=== PATIENT | male | born 1950 | race Caucasian/White ===

== ENCOUNTER 2021-11-26 10:45 | Inpatient (IN) | payer MEDICAID ==
[~2021-11-26] VITALS: Ht 152.4 cm; Wt 77.0 kg
[2021-11-26] MEDS ORDERED: EMPA25TA PO (10:59)
[2021-11-26] MEDS ORDERED: METF-1211 PO (10:59)
[2021-11-26] MEDS ORDERED: LINA5TAB PO (10:59)
[2021-11-26] MEDS ORDERED: LOSA1TAB40 PO (11:03)
[2021-11-26] MEDS ORDERED: ATOR40TA71 PO (11:03)
[2021-11-26] MEDS ORDERED: INSU100V12 SQ (11:03)
[2021-11-26] MEDS ORDERED: INSNOV SQ (11:03)
[2021-11-26 12:38] LABS: BASOPHILS % (AUTO) 0.7 % (0.0-2.0); EOSINOPHILS % (AUTO) 1.7 % (1.0-6.0); HEMATOCRIT 44.4 % (41-53); LYMPHOCYTES # (AUTO) 1.5 K/uL (1.0-4.8); LYMPHOCYTES % (AUTO) 21.6 % (22.0-44.0); MEAN CORPUSCULAR HEMOGLOBIN 30.1 pg (26.0-34.0); MEAN CORPUSCULAR HGB CONC 33.7 G/dL (31.0-37.0); MEAN CORPUSCULAR VOLUME 89 fL (80-100); MONOCYTES # (AUTO) 0.6 K/uL (0.1-1.0); NEUTROPHILS # (AUTO) 4.6 K/uL (1.8-7.7); PLATELET COUNT (AUTO) 269 K/uL (150-450); RED BLOOD CELL COUNT(AUTO) 4.98 MIL/uL (4.50-5.90); RED CELL DISTRIBUTION WIDTH 14.2 % (11.5-14.5)
[2021-11-26 12:44] LABS: COVID AG,FIA SOURCE NASAL SWAB
[2021-11-26 12:49] LABS: CALCIUM, TOTAL 10.4 mg/dL (8.8-10.5); CREATININE 1.27 mg/dL (0.60-1.30); POTASSIUM 5.2 mmol/L (3.5-5.1)
[2021-11-26 12:54] LABS: ALBUMIN 4.5 g/dL (3.4-5.0); BILIRUBIN,TOTAL 0.6 mg/dL (0.1-1.0); TOTAL PROTEIN, SERUM 8.3 g/dL (6.4-8.2)
[2021-11-26 13:07] LABS: INFLUENZA TYPE A NEGATIVE FOR TYPE A (NEGATIVE); INFLUENZA TYPE B NEGATIVE FOR TYPE B (NEGATIVE)
[2021-11-26] MEDS ORDERED: IOHEXOL 350 MG/ML 100 ML VIAL ONE (13:19)
[2021-11-26] MEDS ORDERED: SODIUM CHLORIDE 0.9% 100 ML ONE (13:19)
[2021-11-26 13:49] LABS: APPEARANCE,URINE CLEAR (CLEAR); BILIRUBIN,URINE NEGATIVE (NEGATIVE); GLUCOSE, URINE (UA) >=1000 mg/dL (NEGATIVE); KETONES,URINE NEGATIVE (NEGATIVE); LEUKOCYTE ESTERASE ,URINE NEGATIVE (NEGATIVE); NITRATE,URINE NEGATIVE (NEGATIVE); OCCULT BLOOD,URINE NEGATIVE (NEGATIVE); PROTEIN,URINE TRACE mg/dL (NEGATIVE); SPECIFIC GRAVITIY, URINE 1.021 (1.003-1.030); UROBILINOGEN,URINE <=1.0 mg/dL (<=1.0)
[2021-11-26 14:09] LABS: BACTERIA,URINE None Seen /HPF (None Seen); RBC,URINE None Seen /HPF (0-2); WBC,URINE None Seen /HPF (0-5)
[2021-11-26 14:39] LABS: PROTHROMBIN TIME 10.7 SEC (9.4-11.6)
[2021-11-26] MEDS ORDERED: HEPARIN SODIUM 25000 UNITS/D5W 250 ML IV PRN (15:30)
[2021-11-26] MEDS ORDERED: HEPARIN SODIUM,PORCINE 5,000 UNITS/ML VIAL IVP PRN ×2 (15:30)
[2021-11-26] MEDS ORDERED: HEPARIN SODIUM,PORCINE 5,000 UNITS/ML VIAL IVP ONE ×2 (15:30→15:45)
[2021-11-26 17:42] VITALS: BP 142/86
[2021-11-26 19:43] VITALS: BP 141/76
[2021-11-26 22:21] LABS: GLUCOMETER DEV NAME(LOC) 5N.3; GLUCOSE,POINT OF CARE 101 MG/DL (70-110)
[2021-11-26] MEDS: ACETAMINOPHEN 325 MG TABLET PO PRN (23:29)
[2021-11-26 23:58] VITALS: BP 133/75
[2021-11-27] MEDS ORDERED: DEXTROSE 50%-WATER 25 GM/50 ML SYRINGE IVP PRN (00:30)
[2021-11-27 04:41] VITALS: BP 117/62
[2021-11-27] MEDS ORDERED: METF-1211 PO (05:34)
[2021-11-27] MEDS ORDERED: EMPA25TA PO (05:34)
[2021-11-27] MEDS ORDERED: LINA5TAB PO (05:34)
[2021-11-27] MEDS ORDERED: SIME80TA13 PO (05:34)
[2021-11-27] MEDS ORDERED: BISA-151 PO (05:34)
[2021-11-27] MEDS: ACETAMINOPHEN 325 MG TABLET PO PRN (06:35)
[2021-11-27 06:53] LABS: EOSINOPHILS % (AUTO) 1.6 % (1.0-6.0); HEMATOCRIT 41.7 % (41-53); HEMOGLOBIN 14.2 g/dL (13.5-17.5); LYMPHOCYTES # (AUTO) 1.5 K/uL (1.0-4.8); LYMPHOCYTES % (AUTO) 24.4 % (22.0-44.0); MEAN CORPUSCULAR HEMOGLOBIN 30.5 pg (26.0-34.0); MEAN CORPUSCULAR HGB CONC 34.1 G/dL (31.0-37.0); MEAN CORPUSCULAR VOLUME 89 fL (80-100); MONOCYTES # (AUTO) 0.5 K/uL (0.1-1.0); MONOCYTES % (AUTO) 8.2 % (2.0-9.0); NEUTROPHILS % (AUTO) 64.8 % (40.0-70.0); PLATELET COUNT (AUTO) 262 K/uL (150-450); RED BLOOD CELL COUNT(AUTO) 4.67 MIL/uL (4.50-5.90)
[2021-11-27] MEDS: ASPIRIN 81 MG DR TABLET PO SCH (08:23)
[2021-11-27] MEDS: LOSARTAN POTASSIUM 50 MG TABLET PO SCH (08:24)
[2021-11-27] MEDS: ATORVASTATIN CALCIUM 40 MG TABLET PO SCH (08:24)
[2021-11-27] MEDS ORDERED: LinaGLIPtin 5 MG TABLET PO SCH (09:00)
[2021-11-27] MEDS ORDERED: MISC MED-CONVERTED FROM AMBULATORY (Empagliflozin (Jardiance) 25 MG) PO SCH (09:00)
[2021-11-27] MEDS ORDERED: HYDROCHLOROTHIAZIDE 25 MG TABLET PO SCH (09:00)
[2021-11-27] MEDS ORDERED: HEPARIN SODIUM,PORCINE 5,000 UNITS/ML VIAL IVP PRN ×2 (09:15)
[2021-11-27 09:27] LABS: INR 1.1 (0.9-1.1); PROTHROMBIN TIME 11.2 SEC (9.4-11.6)
[2021-11-27 10:24] VITALS: BP 129/69
[2021-11-27] MEDS: HEPARIN SODIUM 25000 UNITS/D5W 250 ML IV PRN ×2 (10:35→14:22)
[2021-11-27] MEDS ORDERED: SIME125T62 PO (10:46)
[2021-11-27] MEDS: INSULIN LISPRO 100 UNITS/ML SQ PRN ×3 (12:20→21:46)
[2021-11-27 14:00] VITALS: BP 144/79
[2021-11-27 17:38] VITALS: BP 100/51
[2021-11-27 19:30] VITALS: BP 110/56
[2021-11-27 21:01] LABS: GLUCOMETER DEV NAME(LOC) 5S.1B; GLUCOSE,POINT OF CARE 159 MG/DL (70-110)
[2021-11-27 21:01] LABS: GLUCOMETER DEV NAME(LOC) 5S.1B; GLUCOSE,POINT OF CARE 215 MG/DL (70-110)
[2021-11-27 22:31] LABS: GLUCOMETER DEV NAME(LOC) 5S.1B; GLUCOSE,POINT OF CARE 184 MG/DL (70-110)
[2021-11-28] VITALS (7 sets, daily range): BP systolic 98–119; BP diastolic 56–66
[2021-11-28 06:45] LABS: HEMOGLOBIN 13.7 g/dL (13.5-17.5); LYMPHOCYTES # (AUTO) 1.7 K/uL (1.0-4.8); LYMPHOCYTES % (AUTO) 32.3 % (22.0-44.0); MEAN CORPUSCULAR HEMOGLOBIN 29.9 pg (26.0-34.0); MEAN CORPUSCULAR HGB CONC 33.4 G/dL (31.0-37.0); MEAN CORPUSCULAR VOLUME 89 fL (80-100); MONOCYTES # (AUTO) 0.5 K/uL (0.1-1.0); NEUTROPHILS # (AUTO) 2.8 K/uL (1.8-7.7); NEUTROPHILS % (AUTO) 54.7 % (40.0-70.0); PLATELET COUNT (AUTO) 255 K/uL (150-450); RED BLOOD CELL COUNT(AUTO) 4.59 MIL/uL (4.50-5.90); RED CELL DISTRIBUTION WIDTH 13.8 % (11.5-14.5)
[2021-11-28 07:11] LABS: GLUCOMETER DEV NAME(LOC) 5S.1B; GLUCOSE,POINT OF CARE 165 MG/DL (70-110)
[2021-11-28] MEDS ORDERED: PERFLUTREN PROTEIN-A MICROSPHERES 0.22 MG/ML 3 ML VIAL IVP ONE (07:15)
[2021-11-28 07:21] LABS: HEMOGLOBIN A1C 9.3 % (3.8-5.6)
[2021-11-28 08:22] LABS: ALBUMIN 3.5 g/dL (3.4-5.0); BILIRUBIN,TOTAL 0.3 mg/dL (0.1-1.0); CHOL/HDL RATIO 2.8 (4.2-7.3); CREATININE 1.24 mg/dL (0.60-1.30); POTASSIUM 4.1 mmol/L (3.5-5.1); TOTAL PROTEIN, SERUM 6.9 g/dL (6.4-8.2)
[2021-11-28] MEDS: ASPIRIN 81 MG DR TABLET PO SCH (08:51)
[2021-11-28] MEDS: ATORVASTATIN CALCIUM 40 MG TABLET PO SCH (08:51)
[2021-11-28] MEDS: LOSARTAN POTASSIUM 50 MG TABLET PO SCH (08:54)
[2021-11-28 13:01] LABS: GLUCOMETER DEV NAME(LOC) 5S.2B; GLUCOSE,POINT OF CARE 89 MG/DL (70-110)
[2021-11-28 17:20] LABS: GLUCOMETER DEV NAME(LOC) 5S.1B; GLUCOSE,POINT OF CARE 170 MG/DL (70-110)
[2021-11-28] MEDS: INSULIN LISPRO 100 UNITS/ML SQ PRN ×2 (18:08→20:34)
[2021-11-28 18:26] LABS: GLUCOMETER DEV NAME(LOC) 5S.1B; GLUCOSE,POINT OF CARE 154 MG/DL (70-110)
[2021-11-28 20:51] LABS: GLUCOMETER DEV NAME(LOC) 5S.2B; GLUCOSE,POINT OF CARE 235 MG/DL (70-110)
[2021-11-29 03:14] VITALS: BP 122/67
[2021-11-29 07:06] LABS: ALANINE AMINOTRANSFERASE 21 U/L (12-78); ALBUMIN 3.6 g/dL (3.4-5.0); ALKALINE PHOSPHATASE 84 U/L (46-116); ANION GAP 5 mmol/L (8-16); ASPARTATE AMINOTRANSFERASE 16 U/L (15-37); BILIRUBIN,TOTAL 0.4 mg/dL (0.1-1.0); CALCIUM, TOTAL 9.2 mg/dL (8.8-10.5); CARBON DIOXIDE 29 mmol/L (22-29); CHLORIDE 104 mmol/L (98-107); CREATININE 0.98 mg/dL (0.60-1.30); GLUCOSE,RANDOM 167 mg/dL (70-110); POTASSIUM 4.2 mmol/L (3.5-5.1); SODIUM SERUM 138 mmol/L (136-145); TOTAL PROTEIN, SERUM 7.1 g/dL (6.4-8.2); UREA NITROGEN, BLOOD 20 mg/dL (7-18)
[2021-11-29 07:13] LABS: GLOMERULAR FILTR. RATE CALC > 60 mL/min (>60)
[2021-11-29 07:16] VITALS: BP 102/56
[2021-11-29 14:01] LABS: GLUCOMETER DEV NAME(LOC) 5S.2B; GLUCOSE,POINT OF CARE 155 MG/DL (70-110)
[2021-11-29 14:53] VITALS: BP 125/67
[2021-11-29] MEDS: ASPIRIN 81 MG DR TABLET PO SCH (15:47)
[2021-11-29] MEDS: ATORVASTATIN CALCIUM 40 MG TABLET PO SCH (15:47)
[2021-11-29] MEDS: LOSARTAN POTASSIUM 50 MG TABLET PO SCH (15:47)
[2021-11-29] MEDS: INSULIN LISPRO 100 UNITS/ML SQ PRN ×2 (18:00→20:53)
[2021-11-29 19:10] VITALS: BP 127/60
[2021-11-29 19:36] LABS: GLUCOMETER DEV NAME(LOC) 5S.1B; GLUCOSE,POINT OF CARE 267 MG/DL (70-110)
[2021-11-29 21:11] LABS: GLUCOMETER DEV NAME(LOC) 5S.1B; GLUCOSE,POINT OF CARE 212 MG/DL (70-110)
[2021-11-29 23:35] VITALS: BP 130/66
[2021-11-30 03:40] VITALS: BP 108/75
[2021-11-30] MEDS: INSULIN LISPRO 100 UNITS/ML SQ PRN ×2 (06:26→11:31)
[2021-11-30 06:32] LABS: BASOPHILS % (AUTO) 1.2 % (0.0-2.0); EOSINOPHILS % (AUTO) 1.7 % (1.0-6.0); HEMATOCRIT 41.8 % (41-53); HEMOGLOBIN 14.1 g/dL (13.5-17.5); LYMPHOCYTES # (AUTO) 1.6 K/uL (1.0-4.8); LYMPHOCYTES % (AUTO) 25.8 % (22.0-44.0); MEAN CORPUSCULAR HEMOGLOBIN 30.1 pg (26.0-34.0); MEAN CORPUSCULAR HGB CONC 33.7 G/dL (31.0-37.0); MEAN CORPUSCULAR VOLUME 90 fL (80-100); MONOCYTES # (AUTO) 0.6 K/uL (0.1-1.0); MONOCYTES % (AUTO) 9.3 % (2.0-9.0); NEUTROPHILS # (AUTO) 3.9 K/uL (1.8-7.7); PLATELET COUNT (AUTO) 235 K/uL (150-450); RED BLOOD CELL COUNT(AUTO) 4.68 MIL/uL (4.50-5.90); RED CELL DISTRIBUTION WIDTH 13.9 % (11.5-14.5)
[2021-11-30 06:36] LABS: ALANINE AMINOTRANSFERASE 47 U/L (12-78); ALBUMIN 3.6 g/dL (3.4-5.0); ALKALINE PHOSPHATASE 85 U/L (46-116); ANION GAP 5 mmol/L (8-16); ASPARTATE AMINOTRANSFERASE 37 U/L (15-37); BILIRUBIN,TOTAL 0.4 mg/dL (0.1-1.0); CALCIUM, TOTAL 8.9 mg/dL (8.8-10.5); CARBON DIOXIDE 27 mmol/L (22-29); CHLORIDE 105 mmol/L (98-107); CREATININE 1.14 mg/dL (0.60-1.30); GLUCOSE,RANDOM 192 mg/dL (70-110); POTASSIUM 4.7 mmol/L (3.5-5.1); SODIUM SERUM 137 mmol/L (136-145); UREA NITROGEN, BLOOD 23 mg/dL (7-18)
[2021-11-30 06:36] LABS: GLUCOMETER DEV NAME(LOC) 5S.2B; GLUCOSE,POINT OF CARE 186 MG/DL (70-110)
[2021-11-30 06:40] LABS: GLOMERULAR FILTR. RATE CALC > 60 mL/min (>60)
[2021-11-30 07:59] VITALS: BP 108/69
[2021-11-30] MEDS: ATORVASTATIN CALCIUM 40 MG TABLET PO SCH (08:40)
[2021-11-30] MEDS: LOSARTAN POTASSIUM 50 MG TABLET PO SCH (08:40)
[2021-11-30] MEDS: ASPIRIN 81 MG DR TABLET PO SCH (08:40)
[2021-11-30 11:31] VITALS: BP 131/70
[2021-11-30] MEDS ORDERED: ASPI-1444 PO (14:17)
[2021-12-01 04:35] LABS: GLUCOMETER DEV NAME(LOC) 5S.2B; GLUCOSE,POINT OF CARE 201 MG/DL (70-110)
== END 2021-11-30 14:50 | disposition home or self-care (01) | DRG 251 ==
LOC: EMS 10:53 → 5S 17:18
PROVIDERS: ADMIT Hospitalist; ATTEND Hospitalist
DX: R10.9 Unspecified abdominal pain (principal); I42.2 Other hypertrophic cardiomyopathy; E11.9 Type 2 diabetes mellitus without complications; E78.5 Hyperlipidemia, unspecified; I10 Essential (primary) hypertension; N40.0 Benign prostatic hyperplasia without lower urinary tract symptoms; Z20.822 Contact with and (suspected) exposure to COVID-19; R77.8 Other specified abnormalities of plasma proteins; E78.00 Pure hypercholesterolemia, unspecified; Z87.891 Personal history of nicotine dependence
CPT/HCPCS: 71260; 72193; 74160; 80053; 80061; 81001; 81003; 82271; 82962; 83036; 83690; 84484; 85025; 85610; 85730; 87804; 93005; 93306; 99285; C8924; J1644; J7050; Q9967

== ENCOUNTER 2022-11-14 23:56 | Inpatient (IN) | payer MEDICAID, OTHER ==
[~2022-11-14] VITALS: Ht 162.6 cm; Wt 72.7 kg
[~2022-11-14 23:56] MED LIST: ASPI-1444 PO; ATOR40TA71 PO; BISA-151 PO; EMPA25TA3 PO; INSNOV SQ; INSU100V12 SQ; LINA5TAB PO; LOSA1TAB40 PO; METF-1211 PO; SIME125T62 PO
[2022-11-15 00:24] LABS: BASOPHILS % (AUTO) 0.8 % (0.0-2.0); EOSINOPHILS % (AUTO) 2.3 % (1.0-6.0); HEMATOCRIT 38.3 % (41-53); LYMPHOCYTES # (AUTO) 1.3 K/uL (1.0-4.8); MEAN CORPUSCULAR HEMOGLOBIN 31.4 pg (26.0-34.0); MEAN CORPUSCULAR VOLUME 92 fL (80-100); MONOCYTES # (AUTO) 0.7 K/uL (0.1-1.0); MONOCYTES % (AUTO) 10.2 % (2.0-9.0); NEUTROPHILS # (AUTO) 4.5 K/uL (1.8-7.7); NEUTROPHILS % (AUTO) 66.7 % (40.0-70.0); PLATELET COUNT (AUTO) 285 K/uL (150-450); RED BLOOD CELL COUNT(AUTO) 4.14 MIL/uL (4.50-5.90); RED CELL DISTRIBUTION WIDTH 13.8 % (11.5-14.5)
[2022-11-15 00:34] LABS: CALCIUM, TOTAL 9.5 mg/dL (8.8-10.5); CREATININE 1.49 mg/dL (0.60-1.30); POTASSIUM 4.5 mmol/L (3.5-5.1)
[2022-11-15 00:39] LABS: ALBUMIN 3.6 g/dL (3.4-5.0); BILIRUBIN,TOTAL 0.2 mg/dL (0.1-1.0); TOTAL PROTEIN, SERUM 7.6 g/dL (6.4-8.2)
[2022-11-15] MEDS ORDERED: ASPIRIN 81 MG CHEWABLE TABLET PO ONE (02:00)
[2022-11-15] MEDS ORDERED: NITROGLYCERIN 2% (1 GM=INCH) OINTMENT PACKET TP ONE (02:00)
[2022-11-15] MEDS ORDERED: MORPHINE SULFATE 2 MG/ML SYRINGE IVP PRN (03:00)
[2022-11-15] MEDS ORDERED: HEPARIN SODIUM,PORCINE 5,000 UNITS/ML VIAL IVP PRN ×2 (03:00)
[2022-11-15] MEDS ORDERED: ACETAMINOPHEN 325 MG TABLET PO PRN (03:00)
[2022-11-15] MEDS: METOPROLOL TARTRATE 25 MG TABLET PO SCH ×5 (03:00→20:49)
[2022-11-15] MEDS ORDERED: HEPARIN SODIUM 25000 UNITS/D5W 250 ML IV PRN (03:00)
[2022-11-15] MEDS ORDERED: ONDANSETRON HCL 4 MG/2 ML VIAL IVP PRN (03:00)
[2022-11-15] MEDS: HEPARIN SODIUM,PORCINE 5,000 UNITS/ML VIAL IVP ONE ×2 (03:24→03:29)
[2022-11-15] MEDS ORDERED: DEXTROSE 50%-WATER 25 GM/50 ML SYRINGE IVP PRN (04:00)
[2022-11-15] MEDS ORDERED: BISACODYL 5 MG EC TABLET PO PRN (04:00)
[2022-11-15] MEDS ORDERED: IPRATROPIUM BROMIDE 0.5 MG/2.5 ML NEB SOLUTION NEB ONE (09:15)
[2022-11-15] MEDS ORDERED: ALBUTEROL SULFATE 2.5 MG/0.5 ML NEB SOLUTION NEB ONE (09:15)
[2022-11-15] MEDS: ASPIRIN 81 MG DR TABLET PO SCH (10:08)
[2022-11-15] MEDS: DOCUSATE SODIUM 100 MG CAPSULE PO SCH ×2 (10:08→20:49)
[2022-11-15] MEDS: ATORVASTATIN CALCIUM 40 MG TABLET PO SCH (10:13)
[2022-11-15] MEDS: INSULIN LISPRO 100 UNITS/ML SQ PRN ×3 (11:06→21:22)
[2022-11-15 11:10] LABS: GLUCOMETER DEV NAME(LOC) 5S.2C; GLUCOSE,POINT OF CARE 191 MG/DL (70-110)
[2022-11-15 11:19] VITALS: BP 153/78
[2022-11-15 15:34] VITALS: BP 142/72
[2022-11-15] MEDS: GuaiFENesin/D-METHORPHAN [SUGAR-FREE] 200-20MG/10 ML SYRUP UDCUP PO SCH ×2 (17:16→20:49)
[2022-11-15 18:11] LABS: GLUCOMETER DEV NAME(LOC) 5S.2C; GLUCOSE,POINT OF CARE 219 MG/DL (70-110)
[2022-11-15 20:00] VITALS: BP 130/58
[2022-11-15] MEDS ORDERED: CefTRIAXone 1 GM/DEXTROSE 50 ML IV SCH (21:00)
[2022-11-15] MEDS ORDERED: AZITHROMYCIN 500 MG/NS 250 ML IV SCH (21:00)
[2022-11-15] MEDS ORDERED: INSULIN GLARGINE,HUM.REC.ANLOG 100 UNITS/ML SQ SCH (21:00)
[2022-11-15] MEDS: HEPARIN SODIUM,PORCINE 5,000 UNITS/ML VIAL SQ SCH (23:38)
[2022-11-15 23:43] VITALS: BP 112/62
[2022-11-16 01:01] LABS: GLUCOMETER DEV NAME(LOC) 5S.2C; GLUCOSE,POINT OF CARE 246 MG/DL (70-110)
[2022-11-16 04:00] VITALS: BP 107/55
[2022-11-16] MEDS: INSULIN LISPRO 100 UNITS/ML SQ PRN ×2 (06:19→12:14)
[2022-11-16 06:53] LABS: BASOPHILS % (AUTO) 0.7 % (0.0-2.0); EOSINOPHILS % (AUTO) 2.3 % (1.0-6.0); HEMATOCRIT 37.6 % (41-53); LYMPHOCYTES # (AUTO) 1.1 K/uL (1.0-4.8); LYMPHOCYTES % (AUTO) 16.8 % (22.0-44.0); MEAN CORPUSCULAR HEMOGLOBIN 31.6 pg (26.0-34.0); MEAN CORPUSCULAR HGB CONC 34.5 G/dL (31.0-37.0); MEAN CORPUSCULAR VOLUME 92 fL (80-100); MONOCYTES # (AUTO) 0.7 K/uL (0.1-1.0); MONOCYTES % (AUTO) 10.6 % (2.0-9.0); NEUTROPHILS # (AUTO) 4.6 K/uL (1.8-7.7); NEUTROPHILS % (AUTO) 69.6 % (40.0-70.0); PLATELET COUNT (AUTO) 308 K/uL (150-450); RED CELL DISTRIBUTION WIDTH 13.6 % (11.5-14.5)
[2022-11-16 06:58] LABS: ANION GAP 8 mmol/L (8-16); CALCIUM, TOTAL 9.1 mg/dL (8.8-10.5); CARBON DIOXIDE 27 mmol/L (22-29); CHLORIDE 103 mmol/L (98-107); CREATININE 1.01 mg/dL (0.60-1.30); GLOMERULAR FILTR. RATE CALC > 60 mL/min (>60); GLUCOSE,RANDOM 170 mg/dL (70-110); POTASSIUM 4.1 mmol/L (3.5-5.1); SODIUM SERUM 138 mmol/L (136-145); UREA NITROGEN, BLOOD 16 mg/dL (7-18)
[2022-11-16 07:35] VITALS: BP 137/85
[2022-11-16] MEDS ORDERED: INSLAN SQ (07:55)
[2022-11-16] MEDS ORDERED: AZIT-104 PO (08:01)
[2022-11-16 08:06] LABS: HEPATITIS C AB (EIA) Non Reactive (Non Reactive)
[2022-11-16] MEDS: GuaiFENesin/D-METHORPHAN [SUGAR-FREE] 200-20MG/10 ML SYRUP UDCUP PO SCH (09:06)
[2022-11-16] MEDS: HEPARIN SODIUM,PORCINE 5,000 UNITS/ML VIAL SQ SCH ×2 (09:07)
[2022-11-16] MEDS: DOCUSATE SODIUM 100 MG CAPSULE PO SCH (09:07)
[2022-11-16] MEDS: ASPIRIN 81 MG DR TABLET PO SCH (09:07)
[2022-11-16] MEDS: METOPROLOL TARTRATE 25 MG TABLET PO SCH (09:08)
[2022-11-16] MEDS: ATORVASTATIN CALCIUM 40 MG TABLET PO SCH (09:08)
[2022-11-16 12:07] VITALS: BP 123/76
[2022-11-16 12:11] LABS: GLUCOMETER DEV NAME(LOC) 5N.2C; GLUCOSE,POINT OF CARE 228 MG/DL (70-110)
[2022-11-16 12:11] LABS: GLUCOMETER DEV NAME(LOC) 5N.2C; GLUCOSE,POINT OF CARE 186 MG/DL (70-110)
== END 2022-11-16 13:30 | disposition home or self-care (01) | DRG 139 ==
LOC: EMS 23:56 → 5N 11-15 05:00
PROVIDERS: ADMIT Internal Medicine; ATTEND Internal Medicine
DX: J18.9 Pneumonia, unspecified organism (principal); N17.9 Acute kidney failure, unspecified; I42.2 Other hypertrophic cardiomyopathy; I25.10 Atherosclerotic heart disease of native coronary artery without angina pectoris; R07.89 Other chest pain; J40 Bronchitis, not specified as acute or chronic; I10 Essential (primary) hypertension; E78.00 Pure hypercholesterolemia, unspecified; R06.01 Orthopnea; E11.65 Type 2 diabetes mellitus with hyperglycemia; Z87.891 Personal history of nicotine dependence; Z79.4 Long term (current) use of insulin; Z79.84 Long term (current) use of oral hypoglycemic drugs; Z79.82 Long term (current) use of aspirin; Z79.899 Other long term (current) drug therapy
CPT/HCPCS: 71045; 71250; 80048; 80053; 82962; 83880; 84145; 84484; 85025; 85730; 86803; 87340; 93005; 93306; 94640; 99285; J0456; J0696; J1644; J1815; 36415-L1; 36415-TC; J7613

== ENCOUNTER 2022-12-09 07:51 | Inpatient (IN) | payer OTHER ==
[~2022-12-09] VITALS: Ht 154.9 cm; Wt 77.1 kg
[~2022-12-09 07:51] MED LIST changes: +AZIT-104 PO; -BISA-151 PO; -EMPA25TA3 PO; +INSLAN SQ; -INSNOV SQ; -INSU100V12 SQ; -LINA5TAB PO; -LOSA1TAB40 PO; -METF-1211 PO; -SIME125T62 PO
[2022-12-09] MEDS ORDERED: EMPA25TA3 PO (07:58)
[2022-12-09] MEDS ORDERED: LOSA1TAB40 PO (07:58)
[2022-12-09] MEDS ORDERED: METF-446 PO (07:58)
[2022-12-09] MEDS ORDERED: BECL10.6 PO (07:58)
[2022-12-09] MEDS ORDERED: METO50 PO (07:58)
[2022-12-09] MEDS ORDERED: INSU100V12 SQ (07:58)
[2022-12-09 08:16] LABS: BASOPHILS % (AUTO) 0.6 % (0.0-2.0); EOSINOPHILS % (AUTO) 3.2 % (1.0-6.0); LYMPHOCYTES # (AUTO) 1.5 K/uL (1.0-4.8); LYMPHOCYTES % (AUTO) 17.2 % (22.0-44.0); MEAN CORPUSCULAR HEMOGLOBIN 30.9 pg (26.0-34.0); MEAN CORPUSCULAR HGB CONC 33.5 G/dL (31.0-37.0); MEAN CORPUSCULAR VOLUME 92 fL (80-100); MONOCYTES # (AUTO) 0.7 K/uL (0.1-1.0); MONOCYTES % (AUTO) 8.2 % (2.0-9.0); NEUTROPHILS # (AUTO) 6.2 K/uL (1.8-7.7); NEUTROPHILS % (AUTO) 70.8 % (40.0-70.0); PLATELET COUNT (AUTO) 262 K/uL (150-450); RED BLOOD CELL COUNT(AUTO) 4.22 MIL/uL (4.50-5.90)
[2022-12-09 08:24] LABS: ANION GAP 11 mmol/L (8-16); CALCIUM, TOTAL 9.6 mg/dL (8.8-10.5); CARBON DIOXIDE 26 mmol/L (22-29); CHLORIDE 104 mmol/L (98-107); CREATININE 1.42 mg/dL (0.60-1.30); GLOMERULAR FILTR. RATE CALC 49 mL/min (>60); GLUCOSE,RANDOM 103 mg/dL (70-110); POTASSIUM 4.2 mmol/L (3.5-5.1); SODIUM SERUM 141 mmol/L (136-145); UREA NITROGEN, BLOOD 39 mg/dL (7-18)
[2022-12-09 08:30] LABS: ALANINE AMINOTRANSFERASE 24 U/L (12-78); ALKALINE PHOSPHATASE 82 U/L (46-116); ASPARTATE AMINOTRANSFERASE 18 U/L (15-37); BILIRUBIN,TOTAL 0.3 mg/dL (0.1-1.0); TOTAL PROTEIN, SERUM 7.3 g/dL (6.4-8.2)
[2022-12-09 08:31] LABS: B-TYPE NATRIURETIC PEPTIDE 143 pg/mL (0-100)
[2022-12-09] MEDS ORDERED: NITROGLYCERIN 2% (1 GM=INCH) OINTMENT PACKET TP ONE (08:45)
[2022-12-09] MEDS ORDERED: ASPIRIN 81 MG CHEWABLE TABLET PO ONE (08:45)
[2022-12-09] MEDS ORDERED: HEPARIN SODIUM,PORCINE 5,000 UNITS/ML VIAL IVP PRN ×2 (09:00)
[2022-12-09] MEDS ORDERED: HEPARIN SODIUM,PORCINE 5,000 UNITS/ML VIAL IVP ONE ×2 (09:00)
[2022-12-09 09:11] LABS: PROTHROMBIN TIME 10.3 SEC (9.4-11.6)
[2022-12-09] MEDS ORDERED: ENALAPRILAT DIHYDRATE 1.25 MG/ML VIAL IVP PRN (09:15)
[2022-12-09] MEDS ORDERED: IPRATROPIUM BROMIDE 0.5 MG/2.5 ML NEB SOLUTION NEB PRN (09:15)
[2022-12-09] MEDS ORDERED: ONDANSETRON HCL 4 MG/2 ML VIAL IVP PRN (09:15)
[2022-12-09] MEDS ORDERED: DEXTROSE 50%-WATER 25 GM/50 ML SYRINGE IVP PRN (09:15)
[2022-12-09] MEDS ORDERED: NITROGLYCERIN 0.4 MG SUBLINGUAL TABLET #25 SL PRN (09:15)
[2022-12-09] MEDS ORDERED: BISACODYL 10 MG RECTAL RECTAL SUPPOSITORY PR PRN (09:15)
[2022-12-09] MEDS ORDERED: MORPHINE SULFATE 2 MG/ML SYRINGE IVP PRN (09:15)
[2022-12-09] MEDS ORDERED: ALBUTEROL SULFATE 2.5 MG/0.5 ML NEB SOLUTION NEB PRN (09:15)
[2022-12-09] MEDS ORDERED: DOCUSATE SODIUM 100 MG CAPSULE PO PRN (09:15)
[2022-12-09 09:26] LABS: COVID AG,FIA SOURCE NASAL SWAB
[2022-12-09] MEDS: HEPARIN SODIUM 25000 UNITS/D5W 250 ML IV PRN (09:46)
[2022-12-09] MEDS: FAMOTIDINE 20 MG TABLET PO SCH (09:57)
[2022-12-09 10:00] LABS: INFLUENZA TYPE A NEGATIVE FOR TYPE A (NEGATIVE); INFLUENZA TYPE B NEGATIVE FOR TYPE B (NEGATIVE)
[2022-12-09 11:49] VITALS: BP 152/92
[2022-12-09 15:54] VITALS: BP 120/64
[2022-12-09 19:41] LABS: GLUCOMETER DEV NAME(LOC) 5N.2C; GLUCOSE,POINT OF CARE 127 MG/DL (70-110)
[2022-12-09] MEDS: ACETAMINOPHEN 325 MG TABLET PO PRN (20:13)
[2022-12-09] MEDS: BECLOMETHASONE DIPR HFA 40 MCG/PUFF 10.6 GM INHALER IH SCH (20:31)
[2022-12-09] MEDS ORDERED: METOPROLOL TARTRATE 50 MG TABLET PO SCH (21:00)
[2022-12-09 21:05] VITALS: BP 119/72
[2022-12-09] MEDS: INSULIN LISPRO 100 UNITS/ML SQ PRN (21:05)
[2022-12-09 21:51] LABS: GLUCOMETER DEV NAME(LOC) 5N.2C; GLUCOSE,POINT OF CARE 253 MG/DL (70-110)
[2022-12-10] VITALS (7 sets, daily range): BP systolic 95–118; BP diastolic 54–73
[2022-12-10] MEDS: ACETAMINOPHEN 325 MG TABLET PO PRN ×4 (00:31→22:28)
[2022-12-10] MEDS: HEPARIN SODIUM 25000 UNITS/D5W 250 ML IV PRN (05:24)
[2022-12-10 06:12] LABS: GLUCOMETER DEV NAME(LOC) 5S.1B; GLUCOSE,POINT OF CARE 129 MG/DL (70-110)
[2022-12-10 07:19] LABS: BASOPHILS % (AUTO) 0.9 % (0.0-2.0); EOSINOPHILS % (AUTO) 8.2 % (1.0-6.0); HEMATOCRIT 36.1 % (41-53); HEMOGLOBIN 12.4 g/dL (13.5-17.5); LYMPHOCYTES # (AUTO) 1.4 K/uL (1.0-4.8); LYMPHOCYTES % (AUTO) 21.4 % (22.0-44.0); MEAN CORPUSCULAR HEMOGLOBIN 31.4 pg (26.0-34.0); MEAN CORPUSCULAR HGB CONC 34.3 G/dL (31.0-37.0); MEAN CORPUSCULAR VOLUME 91 fL (80-100); MONOCYTES # (AUTO) 0.6 K/uL (0.1-1.0); MONOCYTES % (AUTO) 9.1 % (2.0-9.0); NEUTROPHILS # (AUTO) 4.1 K/uL (1.8-7.7); NEUTROPHILS % (AUTO) 60.4 % (40.0-70.0); PLATELET COUNT (AUTO) 234 K/uL (150-450); RED BLOOD CELL COUNT(AUTO) 3.95 MIL/uL (4.50-5.90); RED CELL DISTRIBUTION WIDTH 13.8 % (11.5-14.5)
[2022-12-10 07:46] LABS: ALANINE AMINOTRANSFERASE 22 U/L (12-78); ALBUMIN 3.5 g/dL (3.4-5.0); ALKALINE PHOSPHATASE 75 U/L (46-116); ANION GAP 10 mmol/L (8-16); ASPARTATE AMINOTRANSFERASE 19 U/L (15-37); BILIRUBIN,TOTAL 0.3 mg/dL (0.1-1.0); CALCIUM, TOTAL 9.3 mg/dL (8.8-10.5); CARBON DIOXIDE 26 mmol/L (22-29); CHLORIDE 101 mmol/L (98-107); CHOL/HDL RATIO 2.6 (4.2-7.3); CHOLESTEROL 155 mg/dL (131-200); CREATININE 1.14 mg/dL (0.60-1.30); GLOMERULAR FILTR. RATE CALC > 60 mL/min (>60); GLUCOSE,RANDOM 118 mg/dL (70-110); HDL CHOLESTEROL 59 mg/dL (40-60); LDL CHOL (CALC.) 75 mg/dL (0-130); POTASSIUM 4.3 mmol/L (3.5-5.1); SODIUM SERUM 137 mmol/L (136-145); TOTAL PROTEIN, SERUM 6.5 g/dL (6.4-8.2); TRIGLYCERIDES 107 mg/dL (15-150); UREA NITROGEN, BLOOD 31 mg/dL (7-18)
[2022-12-10] MEDS ORDERED: ENALAPRILAT DIHYDRATE 2.5 MG/2 ML VIAL IVP PRN (08:28)
[2022-12-10] MEDS: BECLOMETHASONE DIPR HFA 40 MCG/PUFF 10.6 GM INHALER IH SCH ×2 (09:49→19:56)
[2022-12-10] MEDS: LOSARTAN POTASSIUM 50 MG TABLET PO SCH (09:52)
[2022-12-10] MEDS: ASPIRIN 81 MG DR TABLET PO SCH (09:53)
[2022-12-10] MEDS: FAMOTIDINE 20 MG TABLET PO SCH (09:54)
[2022-12-10] MEDS: METOPROLOL TARTRATE 25 MG TABLET PO SCH ×2 (09:54→22:28)
[2022-12-10] MEDS: ATORVASTATIN CALCIUM 40 MG TABLET PO SCH (09:55)
[2022-12-10] MEDS: INSULIN LISPRO 100 UNITS/ML SQ PRN ×3 (11:58→20:24)
[2022-12-10 20:16] LABS: GLUCOMETER DEV NAME(LOC) 5S.1B; GLUCOSE,POINT OF CARE 238 MG/DL (70-110)
[2022-12-10 20:21] LABS: GLUCOMETER DEV NAME(LOC) 5N.2C; GLUCOSE,POINT OF CARE 273 MG/DL (70-110)
[2022-12-10 20:21] LABS: GLUCOMETER DEV NAME(LOC) 5N.2C; GLUCOSE,POINT OF CARE 122 MG/DL (70-110)
[2022-12-11] VITALS (8 sets, daily range): BP systolic 95–149; BP diastolic 60–75
[2022-12-11 03:26] LABS: GLUCOMETER DEV NAME(LOC) 5S.1B; GLUCOSE,POINT OF CARE 241 MG/DL (70-110)
[2022-12-11] MEDS: INSULIN LISPRO 100 UNITS/ML SQ PRN ×4 (06:03→20:24)
[2022-12-11 06:31] LABS: GLUCOMETER DEV NAME(LOC) 5S.2C; GLUCOSE,POINT OF CARE 203 MG/DL (70-110)
[2022-12-11 07:41] LABS: BASOPHILS % (AUTO) 1.1 % (0.0-2.0); EOSINOPHILS % (AUTO) 7.7 % (1.0-6.0); HEMATOCRIT 40.4 % (41-53); HEMOGLOBIN 13.5 g/dL (13.5-17.5); LYMPHOCYTES # (AUTO) 1.4 K/uL (1.0-4.8); LYMPHOCYTES % (AUTO) 20.6 % (22.0-44.0); MEAN CORPUSCULAR HEMOGLOBIN 30.9 pg (26.0-34.0); MEAN CORPUSCULAR HGB CONC 33.5 G/dL (31.0-37.0); MEAN CORPUSCULAR VOLUME 92 fL (80-100); MONOCYTES # (AUTO) 0.6 K/uL (0.1-1.0); NEUTROPHILS # (AUTO) 4.2 K/uL (1.8-7.7); NEUTROPHILS % (AUTO) 61.6 % (40.0-70.0); PLATELET COUNT (AUTO) 250 K/uL (150-450); RED BLOOD CELL COUNT(AUTO) 4.38 MIL/uL (4.50-5.90); RED CELL DISTRIBUTION WIDTH 13.8 % (11.5-14.5)
[2022-12-11 08:34] LABS: CALCIUM, TOTAL 9.6 mg/dL (8.8-10.5); CREATININE 1.24 mg/dL (0.60-1.30); POTASSIUM 4.4 mmol/L (3.5-5.1)
[2022-12-11] MEDS: METOPROLOL TARTRATE 25 MG TABLET PO SCH ×2 (08:54→20:22)
[2022-12-11] MEDS: LOSARTAN POTASSIUM 50 MG TABLET PO SCH (08:54)
[2022-12-11] MEDS: ATORVASTATIN CALCIUM 40 MG TABLET PO SCH (08:54)
[2022-12-11] MEDS: ASPIRIN 81 MG DR TABLET PO SCH (08:54)
[2022-12-11] MEDS: FAMOTIDINE 20 MG TABLET PO SCH (08:55)
[2022-12-11] MEDS: BECLOMETHASONE DIPR HFA 40 MCG/PUFF 10.6 GM INHALER IH SCH ×2 (08:55→20:23)
[2022-12-11] MEDS: ALBUTEROL SULFATE 2.5 MG/0.5 ML NEB SOLUTION NEB SCH ×3 (12:00→16:04)
[2022-12-11] MEDS ORDERED: SODIUM BICARBONATE 50 MEQ/50 ML VIAL ONE (13:32)
[2022-12-11] MEDS ORDERED: LIDOCAINE/PF 1% 30 ML VIAL ONE (13:32)
[2022-12-11] MEDS ORDERED: IOHEXOL 300 MG/ML 100 ML VIAL ONE ×3 (13:33→14:37)
[2022-12-11] MEDS ORDERED: HEPARIN SODIUM 1000 UNITS/NS 1,000 ML ONE (13:33)
[2022-12-11] MEDS ORDERED: VERAPAMIL HCL 2.5 MG/ML 2 ML VIAL ONE (13:35)
[2022-12-11] MEDS ORDERED: NITROGLYCERIN 50 MG/D5% WATER 250 ML ONE (13:36)
[2022-12-11] MEDS ORDERED: FentaNYL CITRATE PF 100 MCG/2 ML VIAL ONE (14:05)
[2022-12-11] MEDS ORDERED: MIDAZOLAM HCL 2 MG/2 ML VIAL ONE (14:05)
[2022-12-11] MEDS ORDERED: HEPARIN SODIUM 1000 UNITS/NS 1,000 ML IARTER ONE (14:15)
[2022-12-11] MEDS ORDERED: LIDOCAINE 1% 30 ML/SOD BICARB 8.4% 4 ML SQ ONE (14:15)
[2022-12-11] MEDS ORDERED: IOHEXOL 300 MG/ML 100 ML VIAL IARTER ONE ×2 (14:15→14:45)
[2022-12-11] MEDS ORDERED: HEPARIN SODIUM,PORCINE 1,000 UNITS/ML 10 ML VIAL IARTER ONE (14:30)
[2022-12-11] MEDS ORDERED: VERAPAMIL HCL 2.5 MG/ML 2 ML VIAL IARTER ONE (14:30)
[2022-12-11] MEDS ORDERED: FentaNYL CITRATE PF 100 MCG/2 ML VIAL IVP ONE (14:30)
[2022-12-11] MEDS ORDERED: NITROGLYCERIN/D5W 50 MG/250 ML IV BOTTLE IARTER ONE (14:30)
[2022-12-11] MEDS ORDERED: MIDAZOLAM HCL 2 MG/2 ML VIAL IVP ONE (14:30)
[2022-12-11] MEDS ORDERED: HEPARIN SODIUM,PORCINE 1,000 UNITS/ML 10 ML VIAL IVP ONE (14:45)
[2022-12-11] MEDS ORDERED: TICAGRELOR 90 MG TABLET ONE (14:55)
[2022-12-11] MEDS ORDERED: TICAGRELOR 90 MG TABLET PO ONE (15:00)
[2022-12-11] MEDS: IPRATROPIUM BROMIDE 0.5 MG/2.5 ML NEB SOLUTION NEB SCH ×2 (15:15→16:04)
[2022-12-11] MEDS: BENZONATATE 100 MG CAPSULE PO SCH ×2 (16:33→22:10)
[2022-12-11] MEDS: AZITHROMYCIN 500 MG/NS 250 ML IV SCH (16:34)
[2022-12-11 18:06] LABS: GLUCOMETER DEV NAME(LOC) 5N.1C; GLUCOSE,POINT OF CARE 217 MG/DL (70-110)
[2022-12-11] MEDS ORDERED: IPRATROPIUM BROMIDE 0.5 MG/2.5 ML NEB SOLUTION NEB PRN (18:30)
[2022-12-11 20:16] LABS: GLUCOMETER DEV NAME(LOC) 5S.2C; GLUCOSE,POINT OF CARE 285 MG/DL (70-110)
[2022-12-11] MEDS: TICAGRELOR 90 MG TABLET PO SCH (20:22)
[2022-12-11 20:36] LABS: GLUCOMETER DEV NAME(LOC) 5N.2C; GLUCOSE,POINT OF CARE 294 MG/DL (70-110)
[2022-12-11] MEDS ORDERED: 0.9% SODIUM CHLORIDE 15 ML NEB SOLUTION NEB ONE (23:15)
[2022-12-11] MEDS ORDERED: BENZOCAINE/MENTHOL LOZENGE [6 LOZENGES/PACKET] PO ONE (23:15)
[2022-12-12] MEDS ORDERED: ALBUTEROL SULFATE 2.5 MG/0.5 ML NEB SOLUTION NEB PRN (01:00)
[2022-12-12 04:03] VITALS: BP 105/53
[2022-12-12] MEDS: INSULIN LISPRO 100 UNITS/ML SQ PRN ×5 (05:49→21:37)
[2022-12-12 07:21] VITALS: BP 124/66
[2022-12-12 08:16] LABS: GLUCOMETER DEV NAME(LOC) 5S.2C; GLUCOSE,POINT OF CARE 204 MG/DL (70-110)
[2022-12-12] MEDS: LOSARTAN POTASSIUM 50 MG TABLET PO SCH (08:40)
[2022-12-12] MEDS: FAMOTIDINE 20 MG TABLET PO SCH (08:41)
[2022-12-12] MEDS: TICAGRELOR 90 MG TABLET PO SCH ×2 (08:41→20:05)
[2022-12-12] MEDS: ATORVASTATIN CALCIUM 40 MG TABLET PO SCH (08:42)
[2022-12-12] MEDS: METOPROLOL TARTRATE 25 MG TABLET PO SCH ×2 (08:42→20:04)
[2022-12-12] MEDS: BENZONATATE 100 MG CAPSULE PO SCH ×3 (08:42→20:04)
[2022-12-12] MEDS: ASPIRIN 81 MG DR TABLET PO SCH (08:42)
[2022-12-12] MEDS: BECLOMETHASONE DIPR HFA 40 MCG/PUFF 10.6 GM INHALER IH SCH ×2 (10:38→20:05)
[2022-12-12 11:31] VITALS: BP 113/63
[2022-12-12] MEDS ORDERED: LOSA-382 PO (11:40)
[2022-12-12] MEDS ORDERED: BECL10.6 IH (11:40)
[2022-12-12] MEDS ORDERED: METO25 PO (11:40)
[2022-12-12] MEDS ORDERED: BENZ100C68 PO (11:40)
[2022-12-12] MEDS ORDERED: ASPI-1444 PO (11:40)
[2022-12-12] MEDS ORDERED: TICA90TA PO (11:40)
[2022-12-12] MEDS ORDERED: ATOR40TA71 PO (11:40)
[2022-12-12] MEDS: PredniSONE 20 MG TABLET PO SCH (12:20)
[2022-12-12] MEDS: AZITHROMYCIN 500 MG/NS 250 ML IV SCH (13:15)
[2022-12-12] MEDS ORDERED: SODIUM CHLORIDE 0.9% 100 ML ONE (15:28)
[2022-12-12] MEDS ORDERED: IOHEXOL 350 MG/ML 100 ML VIAL ONE (15:28)
[2022-12-12 15:52] VITALS: BP 115/68
[2022-12-12 19:26] VITALS: BP 133/72
[2022-12-12 20:26] LABS: GLUCOMETER DEV NAME(LOC) 5S.2C; GLUCOSE,POINT OF CARE 314 MG/DL (70-110)
[2022-12-12 20:27] LABS: GLUCOMETER DEV NAME(LOC) 5S.2C; GLUCOSE,POINT OF CARE 250 MG/DL (70-110)
[2022-12-12] MEDS ORDERED: INSULIN REGULAR, HUMAN 100 UNITS/ML SQ ONE (21:30)
[2022-12-12] MEDS: INSULIN GLARGINE,HUM.REC.ANLOG 100 UNITS/ML SQ SCH (21:36)
[2022-12-12 22:56] LABS: GLUCOMETER DEV NAME(LOC) 5S.2C; GLUCOSE,POINT OF CARE 460 MG/DL (70-110)
[2022-12-12 23:44] VITALS: BP 142/71
[2022-12-13 05:09] VITALS: BP 121/72
[2022-12-13] MEDS: INSULIN LISPRO 100 UNITS/ML SQ PRN ×2 (05:52→12:50)
[2022-12-13 08:00] VITALS: BP 132/70
[2022-12-13] MEDS: BENZONATATE 100 MG CAPSULE PO SCH (08:22)
[2022-12-13] MEDS: METOPROLOL TARTRATE 25 MG TABLET PO SCH (08:23)
[2022-12-13] MEDS: ATORVASTATIN CALCIUM 40 MG TABLET PO SCH (08:23)
[2022-12-13] MEDS: TICAGRELOR 90 MG TABLET PO SCH (08:23)
[2022-12-13] MEDS: LOSARTAN POTASSIUM 50 MG TABLET PO SCH (08:23)
[2022-12-13] MEDS: FAMOTIDINE 20 MG TABLET PO SCH (08:23)
[2022-12-13] MEDS: PredniSONE 20 MG TABLET PO SCH (08:23)
[2022-12-13] MEDS: ASPIRIN 81 MG DR TABLET PO SCH (08:24)
[2022-12-13] MEDS: BECLOMETHASONE DIPR HFA 40 MCG/PUFF 10.6 GM INHALER IH SCH (08:24)
[2022-12-13] MEDS: INSULIN GLARGINE,HUM.REC.ANLOG 100 UNITS/ML SQ SCH (08:27)
[2022-12-13] MEDS: AZITHROMYCIN 500 MG/NS 250 ML IV SCH (12:51)
[2022-12-13 17:37] LABS: GLUCOMETER DEV NAME(LOC) 5N.1C; GLUCOSE,POINT OF CARE 285 MG/DL (70-110)
[2022-12-13 20:01] LABS: GLUCOMETER DEV NAME(LOC) 5S.2C; GLUCOSE,POINT OF CARE 189 MG/DL (70-110)
== END 2022-12-13 14:30 | disposition home or self-care (01) | DRG 174 ==
LOC: EMS 07:51 → 5S 11:02
PROVIDERS: ADMIT Internal Medicine; ATTEND Internal Medicine
PROC: 4A023N7 Measurement of Cardiac Sampling and Pressure, Left Heart, Percutaneous Approach (ICD-10-PCS; principal; 2022-12-11)
PROC: 027035Z Dilation of Coronary Artery, One Artery with Two Drug-eluting Intraluminal Devices, Percutaneous Approach (ICD-10-PCS; 2022-12-11)
PROC: B2111ZZ Fluoroscopy of Multiple Coronary Arteries using Low Osmolar Contrast (ICD-10-PCS; 2022-12-11)
DX: I21.4 Non-ST elevation (NSTEMI) myocardial infarction (principal); J96.91 Respiratory failure, unspecified with hypoxia; I42.2 Other hypertrophic cardiomyopathy; I13.10 Hypertensive heart and chronic kidney disease without heart failure, with stage 1 through stage 4 chronic kidney disease, or unspecified chronic kidney disease; Z20.822 Contact with and (suspected) exposure to COVID-19; N18.9 Chronic kidney disease, unspecified; E11.22 Type 2 diabetes mellitus with diabetic chronic kidney disease; E11.65 Type 2 diabetes mellitus with hyperglycemia; J43.9 Emphysema, unspecified; E78.00 Pure hypercholesterolemia, unspecified; Z79.02 Long term (current) use of antithrombotics/antiplatelets; Z79.82 Long term (current) use of aspirin; Z87.891 Personal history of nicotine dependence; Z79.899 Other long term (current) drug therapy
CPT/HCPCS: 70491; 71045; 71046; 80048; 80053; 80061; 82962; 83880; 84145; 84484; 85025; 85610; 85730; 86738; 87804; 92920; 92928; 93005; 93306; 94640; 99291; J0456; J1644; J1815; J2250; J3010; J3490; J3535; J7050; Q9967; 36415-L1; 36415-TC; J7613; Z7610

== ENCOUNTER 2024-01-20 04:36 | Inpatient (IN) | payer OTHER ==
[~2024-01-20] VITALS: Ht 167.6 cm; Wt 79.0 kg
[~2024-01-20 04:36] MED LIST changes: +ATOR-2 PO; -ATOR40TA71 PO; -AZIT-104 PO; +CARV3 PO; +EMPA25TA3 PO; -INSLAN SQ; +INSU100V12 SQ; +LOSA-382 PO; +METF-446 PO; +MONT-35 PO; +PANT-31 PO; +TICA90TA PO
[2024-01-20 05:42] LABS: BASOPHILS % (AUTO) 1.6 % (0.0-2.0); EOSINOPHILS % (AUTO) 1.7 % (1.0-6.0); HEMATOCRIT 39.2 % (41-53); HEMOGLOBIN 12.9 g/dL (13.5-17.5); LYMPHOCYTES # (AUTO) 1.2 K/uL (1.0-4.8); LYMPHOCYTES % (AUTO) 24.8 % (22.0-44.0); MEAN CORPUSCULAR HEMOGLOBIN 31.9 pg (26.0-34.0); MEAN CORPUSCULAR HGB CONC 32.9 G/dL (31.0-37.0); MEAN CORPUSCULAR VOLUME 97 fL (80-100); MONOCYTES # (AUTO) 0.4 K/uL (0.1-1.0); MONOCYTES % (AUTO) 8.1 % (2.0-9.0); NEUTROPHILS # (AUTO) 3.1 K/uL (1.8-7.7); NEUTROPHILS % (AUTO) 63.8 % (40.0-70.0); PLATELET COUNT (AUTO) 232 K/uL (150-450); RED BLOOD CELL COUNT(AUTO) 4.04 MIL/uL (4.50-5.90); RED CELL DISTRIBUTION WIDTH 14.5 % (11.5-14.5); WHITE BLOOD COUNT (AUTO) 4.8 K/uL (4.5-11.0)
[2024-01-20 05:46] LABS: CALCIUM, TOTAL 9.8 mg/dL (8.8-10.5); CREATININE 1.21 mg/dL (0.60-1.30); POTASSIUM 4.9 mmol/L (3.5-5.1)
[2024-01-20 05:54] LABS: APPEARANCE,URINE CLEAR (CLEAR); BILIRUBIN,URINE NEGATIVE (NEGATIVE); COLOR,URINE COLORLESS (YELLOW); GLUCOSE, URINE (UA) >=1000 mg/dL (NEGATIVE); KETONES,URINE NEGATIVE (NEGATIVE); LEUKOCYTE ESTERASE ,URINE NEGATIVE (NEGATIVE); NITRATE,URINE NEGATIVE (NEGATIVE); OCCULT BLOOD,URINE NEGATIVE (NEGATIVE); PH,URINE 5.5 (5.0-8.0); PROTEIN,URINE NEGATIVE (NEGATIVE); SPECIFIC GRAVITIY, URINE 1.022 (1.003-1.030); UROBILINOGEN,URINE <=1.0 mg/dL (<=1.0)
[2024-01-20 05:58] LABS: ALBUMIN 3.9 g/dL (3.4-5.0); BILIRUBIN,TOTAL 0.4 mg/dL (0.1-1.0); TOTAL PROTEIN, SERUM 7.6 g/dL (6.4-8.2)
[2024-01-20 05:59] LABS: TROPONIN I-HIGH SENSITIVITY 223 ng/L (<76)
[2024-01-20 06:01] LABS: BACTERIA,URINE None Seen /HPF (None Seen); RBC,URINE None Seen /HPF (0-2); SQUAMOUS EPITHELIAL CELL,UR None Seen /LPF (None Seen); WBC,URINE None Seen /HPF (0-5)
[2024-01-20 06:48] LABS: PROTHROMBIN TIME 10.2 SEC (9.4-11.6)
[2024-01-20 07:04] LABS: TROPONIN I-HIGH SENSITIVITY 210 ng/L (<76)
[2024-01-20 08:09] LABS: COVID AG,FIA SOURCE NASAL SWAB
[2024-01-20 08:19] LABS: TROPONIN I-HIGH SENSITIVITY 193 ng/L (<76)
[2024-01-20 08:41] LABS: GLUCOMETER DEV NAME(LOC) ER.7; GLUCOSE,POINT OF CARE 293 MG/DL (70-110)
[2024-01-20 08:59] LABS: SARS-COV2 (COVID) ANTIGEN,FIA Negative (Negative)
[2024-01-20 09:00] LABS: INFLUENZA TYPE A NEGATIVE FOR TYPE A (NEGATIVE); INFLUENZA TYPE B NEGATIVE FOR TYPE B (NEGATIVE)
[2024-01-20 10:50] VITALS: BP 177/75; PULSE 64; RESP 18; TEMP 98
[2024-01-20 11:40] LABS: GLUCOMETER DEV NAME(LOC) 5N.2C; GLUCOSE,POINT OF CARE 397 MG/DL (70-110)
[2024-01-20] MEDS ORDERED: PANT40TA54 PO (11:54)
[2024-01-20] MEDS ORDERED: DOCU100C33 PO (11:54)
[2024-01-20] MEDS ORDERED: CARVEDILOL 3.125 MG TABLET PO SCH (13:15)
[2024-01-20] MEDS ORDERED: DEXTROSE 50%-WATER 25 GM/50 ML SYRINGE IVP PRN (13:15)
[2024-01-20] MEDS ORDERED: ATORVASTATIN CALCIUM 40 MG TABLET PO SCH (13:15)
[2024-01-20] MEDS: CARVEDILOL 3.125 MG TABLET PO SCH (13:23)
[2024-01-20] MEDS: INSULIN LISPRO 100 UNITS/ML SQ PRN (13:24)
[2024-01-20 15:17] VITALS: BP 162/80; PULSE 62; RESP 18; TEMP 98
[2024-01-20] MEDS: ACETAMINOPHEN 325 MG TABLET PO PRN (17:35)
[2024-01-20] MEDS ORDERED: ONDANSETRON HCL 4 MG/2 ML VIAL IVP PRN (18:15)
[2024-01-20] MEDS ORDERED: BISACODYL 10 MG RECTAL RECTAL SUPPOSITORY PR PRN (18:15)
[2024-01-20] MEDS ORDERED: ALBUTEROL SULFATE 2.5 MG/0.5 ML NEB SOLUTION NEB PRN (18:15)
[2024-01-20] MEDS ORDERED: IPRATROPIUM BROMIDE 0.5 MG/2.5 ML NEB SOLUTION NEB PRN (18:15)
[2024-01-20] MEDS ORDERED: ACETAMINOPHEN 325 MG TABLET PO PRN (18:15)
[2024-01-20] MEDS ORDERED: HYDROCODONE/ACETAMINOPHEN 5-325 MG TABLET PO PRN (18:15)
[2024-01-20] MEDS ORDERED: MAGNESIUM HYDROXIDE SUSPENSION 30 ML UDCUP PO PRN (18:15)
[2024-01-20 18:40] LABS: GLUCOMETER DEV NAME(LOC) 5N.2C; GLUCOSE,POINT OF CARE 275 MG/DL (70-110)
[2024-01-20 19:49] VITALS: BP 165/76; PULSE 61; RESP 18; TEMP 97.6
[2024-01-20] MEDS ORDERED: TICAGRELOR 90 MG TABLET PO SCH (21:00)
[2024-01-20] MEDS: TICAGRELOR 90 MG TABLET PO SCH (21:30)
[2024-01-20] MEDS: MONTELUKAST SODIUM 10 MG TABLET PO SCH (21:30)
[2024-01-20] MEDS: ATORVASTATIN CALCIUM 40 MG TABLET PO SCH (21:30)
[2024-01-20] MEDS: MORPHINE SULFATE 2 MG/ML SYRINGE IVP PRN (21:32)
[2024-01-21] VITALS: BP 158/84; PULSE 64; RESP 18; TEMP 97.5
[2024-01-21] MEDS: HEPARIN SODIUM,PORCINE 5,000 UNITS/ML VIAL SQ SCH (00:20)
[2024-01-21] MEDS: ZOLPIDEM TARTRATE 5 MG TABLET PO PRN (00:26)
[2024-01-21 04:00] VITALS: BP 149/85; PULSE 64; RESP 20; TEMP 97.8
[2024-01-21] MEDS: PANTOPRAZOLE SODIUM 40 MG DR TABLET PO SCH (08:33)
[2024-01-21] MEDS: LOSARTAN POTASSIUM 50 MG TABLET PO SCH (08:33)
[2024-01-21] MEDS: ASPIRIN 81 MG DR TABLET PO SCH (08:34)
[2024-01-21] MEDS: EMPAGLIFLOZIN 25 MG TABLET PO SCH (08:34)
[2024-01-21] MEDS: DOCUSATE SODIUM 100 MG CAPSULE PO SCH (08:35)
[2024-01-21 08:36] LABS: GLUCOMETER DEV NAME(LOC) 5N.2C; GLUCOSE,POINT OF CARE 240 MG/DL (70-110)
[2024-01-21 08:36] LABS: GLUCOMETER DEV NAME(LOC) 5N.2C; GLUCOSE,POINT OF CARE 280 MG/DL (70-110)
[2024-01-21 08:56] VITALS: BP 156/73; PULSE 57; RESP 18; TEMP 97.5
[2024-01-21] MEDS ORDERED: ATORVASTATIN CALCIUM 40 MG TABLET PO SCH ×2 (09:00)
[2024-01-21] MEDS ORDERED: LOSARTAN POTASSIUM 50 MG TABLET PO SCH (09:00)
[2024-01-21] MEDS ORDERED: PANTOPRAZOLE SODIUM 40 MG DR TABLET PO SCH ×2 (09:00)
[2024-01-21 11:55] VITALS: BP 152/58; PULSE 47; RESP 18; TEMP 97.6
[2024-01-21 12:06] LABS: GLUCOMETER DEV NAME(LOC) 5S.2D; GLUCOSE,POINT OF CARE 147 MG/DL (70-110)
== END 2024-01-21 13:30 | disposition home or self-care (01) | DRG 115 ==
LOC: EMS 04:37 → EDH 10:43 → 5S 10:45
PROVIDERS: ADMIT Hospitalist; ATTEND Hospitalist
DX: G47.33 Obstructive sleep apnea (adult) (pediatric) (principal); I42.2 Other hypertrophic cardiomyopathy; E11.9 Type 2 diabetes mellitus without complications; I10 Essential (primary) hypertension; R79.89 Other specified abnormal findings of blood chemistry; I25.10 Atherosclerotic heart disease of native coronary artery without angina pectoris; Z20.822 Contact with and (suspected) exposure to COVID-19; J44.9 Chronic obstructive pulmonary disease, unspecified; E78.00 Pure hypercholesterolemia, unspecified; G47.00 Insomnia, unspecified; Z95.5 Presence of coronary angioplasty implant and graft; Z68.28 Body mass index [BMI] 28.0-28.9, adult; Z79.82 Long term (current) use of aspirin; Z79.899 Other long term (current) drug therapy
CPT/HCPCS: 70450; 71045; 71250; 80053; 81001; 82550; 82962; 83880; 84484; 85025; 85610; 85730; 87804; 93005; 99285; G0378; J1644; J2270; Q9967; 36415-L1; 36415-TC

== ENCOUNTER 2024-03-27 02:37 | Emergency (ER) | payer OTHER ==
[~2024-03-27] VITALS: Ht 162.6 cm; Wt 29.6 kg
[~2024-03-27 02:37] MED LIST changes: -CARV3 PO; +CARV3.1231 PO; +DOCU-385 PO; -EMPA25TA3 PO; +EZET10TA57 PO; +FURO20TA4 PO; +LINA5TAB PO; -LOSA-382 PO; +LOSA100T59 PO; -MONT-35 PO; -PANT-31 PO; +PANT40TA54 PO; -TICA90TA PO
[2024-03-27 02:40] VITALS: TEMP 98.2
[2024-03-27] MEDS ORDERED: DOCU-385 PO (02:44)
[2024-03-27 03:06] LABS: GLUCOMETER DEV NAME(LOC) ER.7; GLUCOSE,POINT OF CARE 167 MG/DL (70-110)
[2024-03-27 03:12] LABS: BASOPHILS % (AUTO) 0.5 % (0.0-2.0); EOSINOPHILS % (AUTO) 2.2 % (1.0-6.0); HEMATOCRIT 36.7 % (41-53); HEMOGLOBIN 12.5 g/dL (13.5-17.5); LYMPHOCYTES # (AUTO) 1.2 K/uL (1.0-4.8); LYMPHOCYTES % (AUTO) 26.3 % (22.0-44.0); MEAN CORPUSCULAR HEMOGLOBIN 32.8 pg (26.0-34.0); MEAN CORPUSCULAR VOLUME 97 fL (80-100); MONOCYTES # (AUTO) 0.4 K/uL (0.1-1.0); MONOCYTES % (AUTO) 8.5 % (2.0-9.0); NEUTROPHILS # (AUTO) 2.9 K/uL (1.8-7.7); NEUTROPHILS % (AUTO) 62.5 % (40.0-70.0); PLATELET COUNT (AUTO) 232 K/uL (150-450); RED CELL DISTRIBUTION WIDTH 14.9 % (11.5-14.5); WHITE BLOOD COUNT (AUTO) 4.7 K/uL (4.5-11.0)
[2024-03-27 03:23] LABS: CALCIUM, TOTAL 9.8 mg/dL (8.8-10.5); CREATININE 1.25 mg/dL (0.60-1.30); POTASSIUM 4.5 mmol/L (3.5-5.1)
[2024-03-27 03:24] LABS: APPEARANCE,URINE CLEAR (CLEAR); BILIRUBIN,URINE NEGATIVE (NEGATIVE); COLOR,URINE COLORLESS (YELLOW); GLUCOSE, URINE (UA) 70-100 mg/dL (NEGATIVE); KETONES,URINE NEGATIVE (NEGATIVE); LEUKOCYTE ESTERASE ,URINE NEGATIVE (NEGATIVE); NITRATE,URINE NEGATIVE (NEGATIVE); OCCULT BLOOD,URINE NEGATIVE (NEGATIVE); PROTEIN,URINE TRACE mg/dL (NEGATIVE); SPECIFIC GRAVITIY, URINE 1.015 (1.003-1.030); UROBILINOGEN,URINE <=1.0 mg/dL (<=1.0)
[2024-03-27 03:33] LABS: BACTERIA,URINE None Seen /HPF (None Seen); RBC,URINE None Seen /HPF (0-2); SQUAMOUS EPITHELIAL CELL,UR Few /LPF (None Seen); WBC,URINE None Seen /HPF (0-5)
[2024-03-27] MEDS: IOHEXOL 9 MG/ML 500 ML BOTTLE PO ONE (06:44)
[2024-03-27] MEDS ORDERED: SODIUM CHLORIDE 0.9% 100 ML ONE (07:02)
[2024-03-27] MEDS ORDERED: IOHEXOL 350 MG/ML 100 ML VIAL ONE (07:03)
[2024-03-27 08:54] VITALS: BP 148/86; PULSE 64; RESP 16
[2024-03-27] MEDS: MAGNESIUM CITRATE [LEMON] 300 ML ORAL SOLUTION PO ONE (10:30)
== END 2024-03-27 10:30 | disposition home or self-care (01) ==
LOC: EMS 02:37
DX: K59.00 Constipation, unspecified (principal); E11.9 Type 2 diabetes mellitus without complications; E78.00 Pure hypercholesterolemia, unspecified; I10 Essential (primary) hypertension
CPT/HCPCS: 99285; 74177; 80048; 81001; 82962; 83690; 85025; 36415; 74022; Q9967 ×2; J7050; 81003

== ENCOUNTER 2024-07-30 20:40 | Emergency (ER) | payer OTHER ==
[~2024-07-30] VITALS: Ht 162.6 cm; Wt 78.2 kg
[2024-07-30 21:26] LABS: GLUCOMETER DEV NAME(LOC) ER.7; GLUCOSE,POINT OF CARE 250 MG/DL (70-110)
[2024-07-30 21:44] LABS: BASOPHILS % (AUTO) 0.5 % (0.0-2.0); EOSINOPHILS % (AUTO) 1.6 % (1.0-6.0); HEMATOCRIT 37.6 % (41-53); HEMOGLOBIN 12.7 g/dL (13.5-17.5); LYMPHOCYTES # (AUTO) 1.4 K/uL (1.0-4.8); LYMPHOCYTES % (AUTO) 35.2 % (22.0-44.0); MEAN CORPUSCULAR HEMOGLOBIN 33.2 pg (26.0-34.0); MEAN CORPUSCULAR HGB CONC 33.7 G/dL (31.0-37.0); MEAN CORPUSCULAR VOLUME 99 fL (80-100); MONOCYTES # (AUTO) 0.3 K/uL (0.1-1.0); MONOCYTES % (AUTO) 7.5 % (2.0-9.0); NEUTROPHILS # (AUTO) 2.2 K/uL (1.8-7.7); NEUTROPHILS % (AUTO) 55.2 % (40.0-70.0); PLATELET COUNT (AUTO) 264 K/uL (150-450); RED BLOOD CELL COUNT(AUTO) 3.81 MIL/uL (4.50-5.90); RED CELL DISTRIBUTION WIDTH 14.4 % (11.5-14.5)
[2024-07-30 21:53] LABS: CALCIUM, TOTAL 9.1 mg/dL (8.8-10.5); CREATININE 1.52 mg/dL (0.60-1.30); POTASSIUM 4.2 mmol/L (3.5-5.1)
[2024-07-30 21:56] LABS: APPEARANCE,URINE CLEAR (CLEAR); BILIRUBIN,URINE NEGATIVE (NEGATIVE); COLOR,URINE COLORLESS (YELLOW); GLUCOSE, URINE (UA) >=1000 mg/dL (NEGATIVE); KETONES,URINE NEGATIVE (NEGATIVE); LEUKOCYTE ESTERASE ,URINE NEGATIVE (NEGATIVE); NITRATE,URINE NEGATIVE (NEGATIVE); OCCULT BLOOD,URINE NEGATIVE (NEGATIVE); PH,URINE 6.5 (5.0-8.0); PROTEIN,URINE 30-70 mg/dL (NEGATIVE); SPECIFIC GRAVITIY, URINE 1.015 (1.003-1.030); UROBILINOGEN,URINE <=1.0 mg/dL (<=1.0)
[2024-07-30 21:59] LABS: ALBUMIN 3.8 g/dL (3.4-5.0); BILIRUBIN,DIRECT 0.1 mg/dL (0.00-0.20); BILIRUBIN,TOTAL 0.3 mg/dL (0.1-1.0); TOTAL PROTEIN, SERUM 7.6 g/dL (6.4-8.2)
[2024-07-30 22:03] LABS: BACTERIA,URINE Rare /HPF (None Seen); RBC,URINE 0-2 /HPF (0-2); SQUAMOUS EPITHELIAL CELL,UR Rare /LPF (None Seen); WBC,URINE None Seen /HPF (0-5)
[2024-07-31] MEDS: PB/HYOSCY/ATR/SCOP/LIDO/MAALOX 55 ML BOTTLE PO ONE (00:27)
[2024-07-31] MEDS ORDERED: PANT40TA54 PO (01:25)
[2024-07-31 01:59] VITALS: BP 145/76; PULSE 67; RESP 18; TEMP 98.3; O2SAT 95
== END 2024-07-31 02:50 | disposition home or self-care (01) ==
LOC: EMS 20:40
DX: K29.70 Gastritis, unspecified, without bleeding (principal); E11.9 Type 2 diabetes mellitus without complications; E78.00 Pure hypercholesterolemia, unspecified; I10 Essential (primary) hypertension; Z79.82 Long term (current) use of aspirin; Z79.84 Long term (current) use of oral hypoglycemic drugs; Z79.899 Other long term (current) drug therapy
CPT/HCPCS: 74018; 76705; 80048; 80076; 81001; 82962; 83690; 85025; 99284; 36415-L1; 36415-TC